=== PATIENT | female | born 2000 | race Caucasian/White ===

== ENCOUNTER 2024-07-11 16:08 | Outpatient (CLI) | payer BC, SELFPAY ==
[2024-07-11 17:51] LABS: HIV Combo NEGATIVE (Negative)
[2024-07-11 17:58] LABS: Hepatitis C Ab Qual. W/ RFX NEGATIVE (Negative)
[2024-07-12 16:27] LABS: RPR W/RFX Titers Nonreactive (Nonreactive)
== END 2024-07-11 23:59 | disposition home or self-care (01) ==
LOC: LAB 16:13
PROVIDERS: PCP Nurse Practitioner Family; Visit Provider Obstetrics & Gynecology
DX: Z11.3 Encounter for screening for infections with a predominantly sexual mode of transmission (principal)
CPT/HCPCS: 36415; 86592; 86803; 87389

== ENCOUNTER 2025-02-08 13:33 | Outpatient (CLI) | payer BC, SELFPAY ==
--- NOTE | 2025-02-08 13:35 | XR_ITS ---
PROCEDURE INFORMATION: Exam: XR Left Foot Exam date and time: 02/08/2025 1:30 PM Age: 24 years old Clinical indication: Pain; Foot; Left; Additional info: Pain in left foot near anterior portion of ankle x 1 1/2 weeks, no known trauma TECHNIQUE: Imaging protocol: Radiologic exam of the left foot. Views: 3 or more views. COMPARISON: No relevant prior studies available. FINDINGS: Bones/joints: There is no evidence of acute fracture.There is no evidence of malalignment or dislocation. Soft tissues: Normal. IMPRESSION: There is no evidence of acute fracture.There is no evidence of malalignment or dislocation.
== END 2025-02-08 23:59 | disposition home or self-care (01) ==
LOC: RAD 13:35
PROVIDERS: PCP Nurse Practitioner Family; Visit Provider Nurse Practitioner
DX: M79.672 Pain in left foot (principal)
CPT/HCPCS: 73630